=== PATIENT | male | born 1975 | race Caucasian/White ===

== ENCOUNTER 2020-10-10 01:47 | Emergency (ER) | payer SELFPAY ==
[~2020-10-10 01:47] MED LIST: ATHLETIC FOOT C30 GM TP; BACTRIM DS TAB1 EACH PO; GLUCOPHAGE500 MG PO; KEFLEX CAP 500500 MG PO; PERCOCET 5-3251 EACH PO
[2020-10-10 02:46] LABS: HEMOGLOBIN 16.6 gm/dl (14.0-17.5); RED BLOOD COUNT 4.93 M/UL (4.20-5.50); WHITE BLOOD COUNT 10.6 K/UL (4.5-11.0)
[2020-10-10 03:08] LABS: BUN/CREATININE RATIO 11 (0-10)
[2020-10-10] MEDS ORDERED: METFORMIN HCL1000 MG PO (03:50)
== END 2020-10-10 04:00 | disposition home or self-care (01) ==
LOC: ER1 01:47
PROVIDERS: Family Medicine
DX: E11.65 Type 2 diabetes mellitus with hyperglycemia (principal); F17.200 Nicotine dependence, unspecified, uncomplicated; Z88.1 Allergy status to other antibiotic agents
CPT/HCPCS: 80053; 81001; 82550; 82553; 82962; 83690; 84484; 85025; 99284

== ENCOUNTER 2020-10-22 03:04 | Emergency (ER) | payer OTHER ==
[~2020-10-22 03:04] MED LIST changes: +METFORMIN HCL1000 MG PO
[2020-10-22 04:37] LABS: HEMOGLOBIN 15.8 gm/dl (14.0-17.5); RED BLOOD COUNT 4.8 M/UL (4.20-5.50); WHITE BLOOD COUNT 10.8 K/UL (4.5-11.0)
[2020-10-22 04:53] LABS: BUN/CREATININE RATIO 10 (0-10)
[2020-10-22] MEDS ORDERED: ZOFRAN 4 MG TAB4 MG PO (05:33)
== END 2020-10-22 05:44 | disposition home or self-care (01) ==
LOC: ER1 03:04
PROVIDERS: Emergency Medicine
DX: A08.4 Viral intestinal infection, unspecified (principal); I10 Essential (primary) hypertension; E11.9 Type 2 diabetes mellitus without complications; F17.200 Nicotine dependence, unspecified, uncomplicated; Z20.822 Contact with and (suspected) exposure to COVID-19
CPT/HCPCS: 71045; 80053; 85025; 99284; U0002

== ENCOUNTER 2022-05-29 03:26 | Emergency (ER) | payer OTHER ==
[~2022-05-29 03:26] MED LIST changes: +ZOFRAN 4 MG TAB4 MG PO
[2022-05-29] MEDS ORDERED: ACYCLOVIR400 MG PO (03:50)
[2022-05-29] MEDS ORDERED: XYLOCAINE 2% JE30 ML TOP (03:55)
[2022-05-29] MEDS ORDERED: ENDOCET 5-3251 EACH PO (03:55)
[2022-05-30 15:14] LABS: HSV-2 IGG SUPPLEMENTAL TEST Positive (Negative)
== END 2022-05-29 04:48 | disposition home or self-care (01) ==
LOC: ER1 03:26
PROVIDERS: Emergency Medicine
DX: A60.00 Herpesviral infection of urogenital system, unspecified (principal)
CPT/HCPCS: 86695; 86696; 99282